=== PATIENT | male | born 1965 | race African-American/Black ===

== ENCOUNTER → 2017-08-01 | Outpatient (CLI) | payer BC ==
--- NOTE | 2017-08-01 11:07 | RAD ---
Ultrasound evaluation of the abdominal aorta 08/01/2017 Indication: Uncontrolled hypertension Comparison study: None Discussion: Ultrasound evaluation of the abdominal aorta was performed. Static images were submitted to PACS. Proximal abdominal aorta measures up to 2 cm in diameter. Mid abdominal aorta measures up to 1.8 cm in diameter. Distal abdominal aorta measures up to 1.8 cm in diameter. The visualized iliac arteries are grossly normal in caliber and appear to be patent. Color Doppler imaging is grossly unremarkable without evidence of stenosis. Minimal atherosclerotic vascular disease is noted in the iliac arteries. Impression: No sonographic evidence of abdominal aortic aneurysm
== END | disposition home or self-care (01) ==
LOC: US 09:40
PROVIDERS: ATTEND Nurse Practitioner Family
DX: I10 Essential (primary) hypertension (principal)
CPT/HCPCS: 76770

== ENCOUNTER → 2021-08-08 | Outpatient (CLI) | payer BC ==
--- NOTE | 2021-08-08 11:46 | RAD ---
PQRS Compliance Statement: One or more of the following individualized dose reduction techniques were utilized for this examinat ion: 1. Automated exposure control 2. Adjustment of the mA and/or kV according to patient size 3. Use of iterative reconstruction technique CT abdomen/pelvis without contrast 08/08/2021 11:15 AM INDICATION: Vomiting blood. Intermittent abdominal pain for 2 weeks COMPARISON: US abdomen 08/01/2017 TECHNIQUE: Multiple axial CT images of the abdomen and pelvis were obtained without intravenous contr ast. Coronal and sagittal reformats are provided. FINDINGS: Visualized portions of the lung bases are clear. Heart size is within normal limits. Evaluation of the solid abdominal viscera is limited by lack of intravenous contrast. Diffuse hepatic steatosis. Areas of circumscribed rounded high attenuation measuring that of simple f luid may represent areas of simple cysts or fatty sparing.. Spleen, bilateral adrenal glands, and lux creas are normal in appearance. Gallbladder is present without adjacent inflammatory changes. The abdominal aorta is normal in course and caliber. There are no pathologically enlarged lymph nodes in the abdomen and pelvis. There is no abdominal free fluid. There is no free intraperitoneal air. Small and large bowel are normal in caliber. There is no evidence for bowel obstruction. There are no pericolonic inflammatory changes. A normal, nondilated appendix is visualized without adjacent infla mmatory changes. There is mild diverticulosis. Small fat-containing left inguinal hernia. Urinary bladder is within normal limits given degree of di stention. Prostate and seminal vesicles appear normal. Simple appearing bilateral renal cortical cyst s are identified measuring up to 1.8 cm in the superior pole the right kidney 2.7 cm superior pole th e left kidney. The kidneys are relatively symmetric in appearance. There is no suspicious renal mass within the limitations of a noncontrast examination. There is no hydronephrosis. There are no calculi within the kidneys, ureters or urinary bladder. No suspicious osseous abnormality identified. IMPRESSION: 1. No findings to suggest obstructive uropathy. Simple bilateral renal cortical cysts are identified. 2. Severe hepatic steatosis with areas of higher attenuation suggestive of simple cysts or focal fatt y sparing. This may limit evaluation for underlying hepatic lesions. If there are elevated hepatobili glenroy enzymes, further characterization with MRI of the abdomen with and without contrast could be of b enefit. Electronically signed by: Elisa Tierney MD (08/08/2021 11:44 AM) [facility]
[2021-08-08 12:12] LABS: BASO # 0.1 x10^3/uL (0.0-0.2); BASO % 1 % (0-3); EOS % 0 % (0-3); HEMATOCRIT 50.7 % (39.0-53.0); HEMOGLOBIN 17.4 g/dL (13.0-17.5); LYMPH # 0.9 x10^3/uL (1.0-4.8); LYMPH % 12 % (24-48); MEAN CORPUSCULAR HEMOGLOBIN 34 pg (25-35); MEAN CORPUSCULAR HGB CONC 34 g/dL (31-37); MEAN CORPUSCULAR VOLUME 101 fL (79-100); MONO # 0.5 x10^3/uL (0.0-1.1); MONO % 7 % (0-9); NEUT # 6.1 x10^3uL (1.8-7.7); NEUT % 80 % (31-73); PLATELET COUNT 222 x10^3/uL (140-400); RED BLOOD COUNT 5.04 x10^6/uL (4.30-5.70); RED CELL DISTRIBUTION WIDTH 14.3 % (11.5-14.5); WHITE BLOOD COUNT 7.6 x10^3/uL (4.0-11.0)
[2021-08-08 12:16] LABS: ALBUMIN 4.5 g/dL (3.4-5.0); ALBUMIN/GLOBULIN RATIO 1.1 (1.0-1.7); CREATININE 1.1 mg/dL (0.7-1.3); GFR 83.2; POTASSIUM 3.3 mmol/L (3.5-5.1); TOTAL BILIRUBIN 1.9 mg/dL (0.2-1.0); TOTAL PROTEIN 8.6 g/dL (6.4-8.2)
== END ==
LOC: CT 11:09
PROVIDERS: ATTEND Family Medicine
DX: K76.0 Fatty (change of) liver, not elsewhere classified (principal); N28.1 Cyst of kidney, acquired; K40.90 Unilateral inguinal hernia, without obstruction or gangrene, not specified as recurrent; R11.11 Vomiting without nausea
CPT/HCPCS: 36415; 74176; 80053; 82150; 83690; 85025